=== PATIENT | female | born 1975 | race Caucasian/White ===

== ENCOUNTER → 2016-12-05 | Outpatient (CLI) | payer OTHER ==
[~2016-12-05] MED LIST: CIPR-255 PO
== END | disposition home or self-care (01) ==
LOC: C.PAPS 09:14
PROVIDERS: ATTEND Obstetrics & Gynecology
DX: Z01.419 Encounter for gynecological examination (general) (routine) without abnormal findings (principal)

== ENCOUNTER → 2017-06-10 | Outpatient (CLI) | payer OTHER ==
[2017-06-10 10:30] LABS: BASO % 0.2 %; BASO ABS # 0.01 K/uL (0-0.2); COMPLETE YES; EOS % 1.4 %; HEMATOCRIT 41.9 % (37-47); IG% 0.2 %; LYMPH % 36.6 %; MEAN CELL VOLUME 93.9 fL (80-100); MEAN CORPUSCULAR HEMOGLOBIN 30.9 pg (25-34); MEAN CORPUSCULAR HGB CONC 32.9 g/dl (32-36); MEAN PLATELET VOLUME 10.1 fL (7.4-10.4); MONO % 6.7 %; NEUT % 54.9 %; PLATELET COUNT 347 K/uL (130-400); RED BLOOD COUNT 4.46 M/uL (4.2-5.4); WHITE BLOOD COUNT 6.29 K/uL (4.8-10.8)
== END | disposition home or self-care (01) ==
LOC: C.LAB1850 09:09
PROVIDERS: ATTEND Obstetrics & Gynecology
DX: Z01.818 Encounter for other preprocedural examination (principal)

== ENCOUNTER → 2017-06-24 | Day surgery (SDC) | payer OTHER ==
[2017-06-15 09:10] VITALS: Ht 160 cm; Wt 65.9 kg
[~2017-06-24] VITALS: Ht 160 cm; Wt 65.9 kg
[~2017-06-24] MED LIST changes: +ATROPINE SULFATE 0.1 MG/ML 5ML SYR IV PRN; -CIPR-255 PO; +DEXAMETHASONE SOD INJ 4 MG/ML VIAL ONE; +EpHEDrine SULFATE INJ 50 MG/ML AMP IV PRN; +FENTANYL CITRATE INJ 50 MCG/1 ML 2 ML VIAL IV PRN; +FENTANYL CITRATE INJ 50 MCG/1 ML 2 ML VIAL ONE; +FLUMAZENIL 0.1 MG/1 ML 10 ML VIAL IV PRN; +IBUPROFEN 600 MG TAB PO PRN; +KETOROLAC TROMETHAMINE 30 MG/ML VIAL IV. PRN; +LABETALOL HCL IV 5 MG/ML 20ML IV PRN; +LACTATED RINGER'S 1000ML 1,000 ML IV SCH; +LIDOCAINE HCL 2% 2 ML VIAL (20MG/ML) ONE; +MEPERIDINE HCL 25 MG/ML CARP IV PRN; +METOCLOPRAMIDE HCL INJ 5 MG/ML 2 ML VIAL IV PRN; +MIDAZOLAM HCL 1 MG/ML 2ML VIAL ONE; +NALOXONE HCL 0.4 MG/1 ML VIAL/CARP IV PRN; +ONDANSETRON INJ 2 MG/ML 2 ML VIAL IV PRN; +ONDANSETRON INJ 2 MG/ML 2 ML VIAL ONE; +OXYCODONE/ACETAMINOPHEN 5-325 TAB PO PRN; +PHENYLEPHRINE 100MCG/ML 5ML SYR IV PRN; +PROPOFOL IV EMULSION 10 MG/ML 20 ML VIAL IV ONE; +ROCURONIUM BROMIDE 10 MG/ML 5 ML VIAL IV ONE; +SODIUM CHLORIDE 0.9% 1000ML 1,000 ML IV SCH; +SUCCINYLCHOLINE CHLORIDE 20 MG/ML 10 ML VIAL IV ONE
--- NOTE | 2017-06-24 12:18 | History & Physical Bridge - [place] ---
H&P Re-Evaluation Bridge Note: I have examined the patient, reviewed the History & Physical and in the interval since the performance of the History & Physical I have noted the following changes of clinical significance: No changes noted
--- NOTE | 2017-06-24 12:21 | Discharge Instructions-SurgCtr ---
Discharge Instructions Date of Service Jun 24, 2017. Visit Reason for Visit: Encounter For Female Sterilization Discharge Discharge Diagnosis / Problem: tubal sterilization Discharge Goals Goal(s): Specific goals Activity Recommendations Activity Limitations: per Instructions/Follow-up section Anesthesia . Post Anesthesia Instructions: If you have had General Anesthesia or IV Sedation: * Do not drive today. * Resume driving when surgeon permits. * Do not make important decisions or sign legal documents today. * Call surgeon for: 1. Temperature elevations greater than 101 degrees F. 2. Uncontrollable pain. 3. Excessive bleeding. 4. Persistent nausea and vomiting. 5. Medication intolerance (nausea, vomiting or rash). * For nausea and vomiting use only clear liquids such as: tea, soda, bouillon until nausea subsides, then gradually increase diet as tolerated. * If you have any concerns or questions, call your surgeon's office. If physician is unavailable and it is an emergency, call 911 or go to the nearest emergency room. . Instructions / Follow-Up Instructions / Follow-Up ACTIVITY RECOMMENDATIONS: * Rest the first 2-3 days. You should be back to your normal activity levels by day 3. * No heavy lifting for 2 weeks. * No intercourse, tampons or douching for 1-2 weeks. * You may shower the next day. * Do not drive anytime that you are taking narcotic pain medicines. RETURN TO SCHOOL/WORK: * May return to school or work after 2-3 days. DIET: Nausea may occur in the immediate post-operative period. If so, take clear liquids such as tea, bouillon, apple juice until all nausea has subsided, then resume usual diet. MEDICATIONS: Resume previous medications unless instructed otherwise by your surgeon. Ibuprofen 200mg 2-3 tablets every 4-6 hours as needed -- OR -- Aleve 2 tablets every 8-12 hours as needed for post-operative discomfort Medications are over the counter. Tylenol may be used if above medications are contraindicated or not preferred. Medication should be taken with food or milk. Do not take on an empty stomach. SPECIAL CARE INSTRUCTIONS: * Check temperature twice daily for one week. report any elevation over 101 degrees. * You may experience some vagina spotting and/or bleeding. This is normal for 1 -2 weeks and should not be heavier than a normal period. If it is unusual in amount, call your physician. * Post-operative discomfort may consist of a sore throat, a "bloated" feeling and pain in the shoulders. these are normal symptoms, which usually only last for 2-3 days. * Remove band-aids tomorrow and shower. There is no need to replace band-aids unless there is drainage or discomfort. FOLLOW UP VISIT: Call your doctor's office for a post-operative 2 week visit if not already scheduled. Diet Recommendations Home Diet: resume previous diet Pending Studies Studies pending at discharge: no Medical Emergencies . Who to Call and When: Medical Emergencies: If at any time you feel your situation is an emergency, please call 911 immediately. . Non-Emergent Contact Non-Emergency issues call your: Primary Care Provider . . "Provider Documentation" section prepared by Justa Luis. . [place] Drug Monitoring Program Search Results: no issues identified
--- NOTE | 2017-06-24 13:53 | OPERATIVE REPORT ---
DATE OF OPERATION: 06/24/2017 PREOPERATIVE DIAGNOSIS: Desires sterilization. POSTOPERATIVE DIAGNOSIS: Same. PROCEDURE: Bilateral salpingectomy. SURGEON: Dr. Justa Luis. ASSIST: None. ESTIMATED BLOOD LOSS: 5. COMPLICATIONS: None. DISPOSITION: Stable to recovery room. DESCRIPTION: [place] was placed on the table in the supine position after establishment of a Simms catheter. She was then prepped and draped in standard sterile fashion. A umbilical incision was made in the usual manner and then optical entry was completed without complication. The abdomen was insufflated and under direct visualization, right and left lower quadrant ports were placed. The pelvis was seen to be normal with a small uterus, 2 normal ovaries and 2 normal appearing fallopian tubes. Surgery began by grasping the right fallopian tube at the fimbrial end to elevate it and using a Harmonic scalpel to dissect the left fallopian tube off of the mesosalpinx from distal to the proximal end and then removing the tube near the uterine cornu. The tube itself was then extracted through the umbilical port. Same procedure was repeated on the left tube which was elevated by its fimbriated end, dissected off the mesosalpinx, disconnected from the uterine cornu and then removed through the umbilical port. The fallopian tubes were sent for pathology. The final survey of the pelvis revealed good hemostasis at all working sites. The procedure was then felt to be completed. The gas was allowed to escape the abdomen and all trocars were removed. The umbilical trocar site was closed with a UR-6 at the fascia. All sites were then closed with Dermabond dressing at the skin. Please note that the Simms was removed before the patient was transferred in stable condition to the PACU. I attest to the content of the Intraoperative Record and any orders documented therein. Any exception s are noted below.
[2017-06-24 14:11] VITALS: TEMP 36.5
--- NOTE | 2017-06-24 14:15 | Anesthesia Progress Nt - [facility] ---
Anesthesia Post Op Note Date & Time Jun 24, 2017 at 14:15 Vital Signs Pain Intensity: 1 Vital Signs Past 12 Hours Date Time Temp Pulse Resp B/P (MAP) Pulse Ox O2 Delivery O2 Flow Rate FiO2 06/24/17 14:03 70 18 98 06/24/17 14:03 67 18 06/24/17 14:01 124/87 06/24/17 13:59 37.4 70 20 124/87 98 Room Air 06/24/17 13:58 80 20 98 06/24/17 13:58 78 20 06/24/17 13:56 112/81 06/24/17 13:53 80 18 98 06/24/17 13:53 71 18 06/24/17 13:51 139/78 06/24/17 13:48 75 15 98 06/24/17 13:48 78 15 06/24/17 13:46 127/77 06/24/17 13:43 79 17 06/24/17 13:43 82 17 100 06/24/17 13:41 136/66 06/24/17 13:38 77 21 100 06/24/17 13:38 76 21 06/24/17 13:36 131/78 06/24/17 13:33 84 22 100 06/24/17 13:33 82 22 06/24/17 13:31 125/76 06/24/17 13:29 129/82 06/24/17 13:28 36.7 102 20 129/82 99 Mask 6 06/24/17 11:37 36.8 80 22 128/90 (103) 100 Room Air Notes Mental Status: alert / awake / arousable, participated in evaluation Pt Amnestic to Procedure: Yes Nausea / Vomiting: adequately controlled Pain: adequately controlled Airway Patency, RR, SpO2: stable & adequate BP & HR: stable & adequate Hydration State: stable & adequate Anesthetic Complications: no major complications apparent
[2017-06-24 14:34] VITALS: BP 129/89; PULSE 75; O2SAT 98
== END | disposition home or self-care (01) ==
LOC: X.SURG 11:23
PROVIDERS: ATTEND Obstetrics & Gynecology
DX: Z30.2 Encounter for sterilization (principal); F41.9 Anxiety disorder, unspecified; E55.9 Vitamin D deficiency, unspecified; Z82.49 Family history of ischemic heart disease and other diseases of the circulatory system; Z80.0 Family history of malignant neoplasm of digestive organs; Z80.41 Family history of malignant neoplasm of ovary; Z84.1 Family history of disorders of kidney and ureter

== ENCOUNTER → 2017-06-30 | Outpatient (CLI) | payer OTHER ==
--- NOTE | 2017-07-01 08:14 | MAMMOGRAPHY REPORT ---
BILATERAL DIGITAL SCREENING MAMMOGRAM TOMOSYNTHESIS WITH CAD: 06/30/2017 CLINICAL HISTORY: Routine screening. Patient has no complaints. TECHNIQUE: Breast tomosynthesis in addition to standard 2D mammography was performed. Current study was also evaluated with a Computer Aided Detection (CAD) system. COMPARISON: Comparison is made to exams dated: 10/05/2013 mammogram, 08/02/2012 ultrasound, and 08/02/20 12 mammogram - [facility]. BREAST COMPOSITION: The tissue of both breasts is extremely dense, which lowers the sensitivity of m ammography. FINDINGS: The parenchymal pattern is unchanged. No developing mass, architectural distortion or clus ter of suspicious microcalcifications is seen in either breast. IMPRESSION: ACR BI-RADS CATEGORY 2: BENIGN There is no mammographic evidence of malignancy. A 1 year screening mammogram is recommended. The pa tient will receive written notification of the results. Approximately 10% of breast cancers are not detected with mammography. A negative mammographic report should not delay biopsy if a clinically suggestive mass is present. Racheal Rossi M.D. ay/:06/30/2017 16:09:42 Fishing Tool Operator: Tiffany MATHEW(R)(M), [facility] letter sent: Normal 1/2 BI-RADS Code: ACR BI-RADS Category 2: Benign
== END | disposition home or self-care (01) ==
LOC: C.MAMM 13:44
PROVIDERS: ATTEND Physician Assistant
DX: Z12.31 Encounter for screening mammogram for malignant neoplasm of breast (principal)